=== PATIENT | male | born 1970 | race American Indian/Alaskan Native ===

== ENCOUNTER 2019-01-21 09:00 | Emergency (ER) | payer SELFPAY ==
--- NOTE | 2019-01-21 09:27 | Emergency Department Report ---
HPI - General Chief Complaint: Medical Clearance Time Seen by Provider: 01/21/19 09:17 - HPI HPI: 48-year-old -Iraqi male presents to the emergency department for a refill of his blood pressure medications which include lisinopril 40 mg and amlodipine 5 mg. Patient has been out of these medications for the past 5 days. He has no other physical complaints associated with elevated blood pressure. He does drink multiple caffeinated drinks per day and eats fast food that is high in salt. He does not have a primary care physician. Denies tobacco or illicit drug use. ED Past Medical Hx - Past Medical History Previous Medical History?: Yes Hx Hypertension: Yes - Surgical History Past Surgical History?: No - Social History Smoking Status: Never Smoker - Medications Home Medications: Home Medications Medication Instructions Recorded Confirmed Last Taken Type Lisinopril [Zestril TAB] 40 mg PO QDAY #30 tablet 01/21/19 Unknown Rx amLODIPine 5 mg PO DAILY #30 tab 01/21/19 Unknown Rx ED Review of Systems ROS: Stated complaint: HBP/MED REFILL Other details as noted in HPI Comment: All other systems reviewed and negative Constitutional: denies: fever Eyes: denies: vision change Respiratory: denies: shortness of breath Cardiovascular: denies: chest pain Gastrointestinal: denies: abdominal pain Neurological: denies: headache Physical Exam - Physical Exam Vital Signs: Vital Signs 01/21/19 09:07 Temperature 98.4 F Pulse Rate 81 Respiratory 16 Rate Blood Pressure 175/102 O2 Sat by Pulse 98 Oximetry Physical Exam: GENERAL: The patient is well-developed well-nourished. HENT: Normocephalic. Atraumatic. Patient has moist mucous membranes. EYES: Extraocular motions are intact. NECK: Supple. Trachea is midline. CHEST/LUNGS: Clear to auscultation. There is no respiratory distress noted. HEART/CARDIOVASCULAR: Regular. There is no tachycardia. There is no murmur. ABDOMEN: There is no abdominal distention. SKIN: Skin is warm and dry. NEURO: The patient is awake, alert, and oriented. The patient is cooperative. Normal speech. MUSCULOSKELETAL: There is no tenderness or deformity. There is no evidence of acute injury. ED Course Vital Signs 01/21/19 09:07 Temperature 98.4 F Pulse Rate 81 Respiratory 16 Rate Blood Pressure 175/102 O2 Sat by Pulse 98 Oximetry ED Medical Decision Making - Medical Decision Making Patient presents with some elevated blood pressure after being out of his medication for the past 5 days. He has no physical complaints including any chest pain, headache, shortness of breath. We discussed staying away from foods that are high in salt and caffeinated products and keeping a blood pressure log. He will receive a prescription refill of his blood pressure medications and has been given some referrals for local primary care physicians and clinics. Critical Care Time: No Critical care attestation.: If time is entered above; I have spent that time in minutes in the direct care of this critically ill patient, excluding procedure time. ED Disposition Clinical Impression: Medication refill Hypertension Qualifiers: Hypertension type: essential hypertension Qualified Code(s): I10 - Essential (primary) hypertension Disposition: TO HOME OR SELFCARE Is pt being admited?: No Condition: Stable Instructions: Hypertension (ED) Additional Instructions: Please try and stay away from foods that are high in salt and caffeinated products to help with your blood pressure. Keep a blood pressure log. Take your medication as prescribed. Please follow-up with a primary care physician in the next few days. Prescriptions: amLODIPine 5 mg PO DAILY #30 tab Lisinopril [Zestril TAB] 40 mg PO QDAY #30 tablet Referrals: NATHALY MALDONADO MD [Staff Physician] - 3-5 Days [facility] [Outside] - 3-5 Days MT INGRAM MD [Staff Physician] - 3-5 Days Time of Disposition: 09:27
[2019-01-21 09:45] VITALS: BP 170/100
== END 2019-01-21 09:30 | disposition home or self-care (01) ==
LOC: ED 09:00
DX: I10 Essential (primary) hypertension (principal); Z76.0 Encounter for issue of repeat prescription; Z79.899 Other long term (current) drug therapy

== ENCOUNTER 2019-03-18 09:21 | Emergency (ER) | payer SELFPAY ==
[2019-03-18 09:53] VITALS: BP 175/100
== END 2019-03-18 12:41 | disposition left against medical advice (07) ==
LOC: ED 09:21
DX: I10 Essential (primary) hypertension (principal); Z53.21 Procedure and treatment not carried out due to patient leaving prior to being seen by health care provider

== ENCOUNTER 2019-03-25 07:29 | Emergency (ER) | payer SELFPAY ==
--- NOTE | 2019-03-25 11:08 | Emergency Department Report ---
ED Medical Clearance HPI - General Chief complaint: Medical Clearance Stated complaint: MEDICATION REFILL/HBP Source: patient Mode of arrival: Ambulatory - History of Present Illness Initial comments: This is a 48-year-old -[place] male stating he was recently [facility]. Patient states that he is out of his blood pressure medication which is amlodipine 5 mg daily and lisinopril 40 mg daily. Patient currently has no medical complaints. Requesting refill of his blood pressure medicine Home medications: Previous Rx's Medication Instructions Recorded Last Taken Type amLODIPine 5 mg PO DAILY #30 tab 01/21/19 Unknown Rx lisinopriL [Zestril TAB] 40 mg PO QDAY #30 tablet 01/21/19 Unknown Rx amLODIPine 5 mg PO DAILY #30 tab 03/25/19 Unknown Rx lisinopriL [Zestril TAB] 40 mg PO DAILY #30 tablet 03/25/19 Unknown Rx Allergies/Adverse reactions: Allergies Allergy/AdvReac Type Severity Reaction Status Date / Time No Known Allergies Allergy Unverified 01/21/19 09:03 ED Review of Systems ROS: Stated complaint: MEDICATION REFILL/HBP Other details as noted in HPI ED Past Medical Hx - Past Medical History Previous Medical History?: Yes Hx Hypertension: Yes - Surgical History Past Surgical History?: No - Social History Smoking Status: Never Smoker Substance Use Type: Alcohol, Prescribed - Medications Home Medications: Home Medications Medication Instructions Recorded Confirmed Last Taken Type amLODIPine 5 mg PO DAILY #30 tab 01/21/19 Unknown Rx lisinopriL [Zestril TAB] 40 mg PO QDAY #30 tablet 01/21/19 Unknown Rx amLODIPine 5 mg PO DAILY #30 tab 03/25/19 Unknown Rx lisinopriL [Zestril TAB] 40 mg PO DAILY #30 tablet 03/25/19 Unknown Rx ED Physical Exam - General Limitations: No Limitations General appearance: alert, in no apparent distress - Eye Eye exam: Present: normal appearance - ENT ENT exam: Present: normal exam - Neck Neck exam: Present: normal inspection - Respiratory Respiratory exam: Present: normal lung sounds bilaterally. Absent: respiratory distress, wheezes - Cardiovascular Cardiovascular Exam: Present: regular rate - Extremities Exam Extremities exam: Present: normal inspection - Neurological Exam Neurological exam: Present: alert, oriented X3 - Psychiatric Psychiatric exam: Present: normal affect - Skin Skin exam: Present: warm, dry, intact ED Course Vital Signs 03/25/19 03/25/19 07:34 11:08 Temperature 97.7 F Pulse Rate 87 Respiratory 16 Rate Blood Pressure 170/100 [Left] O2 Sat by Pulse 99 Oximetry ED Medical Decision Making - Medical Decision Making 48-year-old male recently released from penitentiary out of his blood pressure medication refill for his amlodipine and lisinopril done stressed importance to the patient about follow-up with either primary care doctor [facility] or Dr. Alvarez. For treatment of his blood pressure BP 170/110 ED Disposition Clinical Impression: Medication refill Disposition: - TO HOME OR SELFCARE Is pt being admited?: No Does the pt Need Aspirin: No Condition: Stable Instructions: Hypertension (ED) Additional Instructions: Take medication as prescribed. You must follow up with Your doctor or [facility] in 1 week Prescriptions: amLODIPine 5 mg PO DAILY #30 tab lisinopriL [Zestril TAB] 40 mg PO DAILY #30 tablet Referrals: LILIAN ELIZABETH MD [Primary Care Provider] - 3-5 Days NATHALY MALDONADO MD [Staff Physician] - 3-5 Days Time of Disposition: 11:10
[2019-03-25 11:09] VITALS: BP 170/100
== END 2019-03-25 11:23 | disposition home or self-care (01) ==
LOC: ED 07:29
DX: I10 Essential (primary) hypertension (principal); Z76.0 Encounter for issue of repeat prescription; Z79.899 Other long term (current) drug therapy
CPT/HCPCS: 99282

== ENCOUNTER 2019-11-11 05:46 | Emergency (ER) | payer SELFPAY ==
[2019-11-11 06:07] VITALS: BP 170/94
--- NOTE | 2019-11-11 08:23 | Emergency Department Report ---
ED Recheck HPI - General Chief Complaint: High BP Stated Complaint: ELEVATED BLOOD PRESSURE Time Seen by Provider: 11/11/19 07:57 Source: patient Mode of arrival: Ambulatory Limitations: No Limitations - History of Present Illness Initial Comments: Patient is a 49-year-old male presents emergency room with complaints of high blood pressure. Patient states that he has not taken his medications since he had it refilled in the emergency department in March 2019. He denies any symptoms at all. He states that he has not followed up with a primary care doctor even though he was given resources during his last visit. He denies any headache, vision changes, numbness, weakness, chest pain, shortness of breath, leg swelling, dark urine, urinary retention, any symptoms. He denies any other past medical history. He states that he takes amlodipine 5 mg daily and lisinopril 40 mg daily. He denies any allergies to medications. - Related Data Previous Rx's Medication Instructions Recorded Last Taken Type amLODIPine 5 mg PO DAILY #30 tab 01/21/19 Unknown Rx lisinopriL [Zestril TAB] 40 mg PO QDAY #30 tablet 01/21/19 Unknown Rx amLODIPine 5 mg PO DAILY #30 tab 11/11/19 Unknown Rx lisinopriL [Zestril TAB] 40 mg PO DAILY #30 tablet 11/11/19 Unknown Rx Allergies Allergy/AdvReac Type Severity Reaction Status Date / Time No Known Allergies Allergy Unverified 01/21/19 09:03 ED Review of Systems ROS: Stated complaint: ELEVATED BLOOD PRESSURE Other details as noted in HPI Comment: All other systems reviewed and negative ED Past Medical Hx - Past Medical History Previous Medical History?: Yes Hx Hypertension: Yes - Surgical History Past Surgical History?: Yes - Social History Smoking Status: Never Smoker Substance Use Type: None - Medications Home Medications: Home Medications Medication Instructions Recorded Confirmed Last Taken Type amLODIPine 5 mg PO DAILY #30 tab 01/21/19 Unknown Rx lisinopriL [Zestril TAB] 40 mg PO QDAY #30 tablet 01/21/19 Unknown Rx amLODIPine 5 mg PO DAILY #30 tab 11/11/19 Unknown Rx lisinopriL [Zestril TAB] 40 mg PO DAILY #30 tablet 11/11/19 Unknown Rx ED Physical Exam - General Limitations: No Limitations General appearance: alert, in no apparent distress - Head Head exam: Present: atraumatic, normocephalic - Eye Eye exam: Present: normal appearance, PERRL, EOMI - ENT ENT exam: Present: mucous membranes moist - Respiratory Respiratory exam: Present: normal lung sounds bilaterally. Absent: respiratory distress, wheezes, rales, rhonchi, stridor, chest wall tenderness, accessory muscle use, decreased breath sounds, prolonged expiratory - Cardiovascular Cardiovascular Exam: Present: regular rate, normal rhythm, normal heart sounds. Absent: systolic murmur, diastolic murmur, rubs, gallop - Neurological Exam Neurological exam: Present: alert, oriented X3, CN II-XII intact, normal gait. Absent: motor sensory deficit - Psychiatric Psychiatric exam: Present: normal affect, normal mood - Skin Skin exam: Present: warm, dry, intact ED Course Vital Signs 11/11/19 06:02 Temperature 98.3 F Pulse Rate 65 Respiratory 18 Rate Blood Pressure 170/94 O2 Sat by Pulse 96 Oximetry ED Recheck MDM - Medical Decision Making Patient is a 49-year-old male presents emergency room with complaints of high blood pressure. Patient states that he has not taken his medications since he had it refilled in the emergency department in March 2019. He denies any symptoms at all. He states that he has not followed up with a primary care doctor even though he was given resources during his last visit. He denies any headache, vision changes, numbness, weakness, chest pain, shortness of breath, leg swelling, dark urine, urinary retention, any symptoms. He denies any other past medical history. He states that he takes amlodipine 5 mg daily and lisinopril 40 mg daily. He denies any allergies to medications. vitals with elevated blood pressure of 170/94, otherwise vitals are normal. Patient will be given a one-month refill of his medications. Patient will again be referred to multiple community resources in order to receive chronic management of his condition and routine blood work. he does not have any clinical signs of HTN urgency/emergency, he has no CVA symptoms. the up to date medical literature does not recommend emergency lowering asymptomatic elevation in blood pressure. Advised patient to please take medication as prescribed. Increase your water i ntake. Please eat a low-sodium (low salt) diet. Incorporate 30 to 60 minutes of aerobic exercise a day. Please keep a blood pressure log and take this to the primary care physician. It is very important that you follow-up with a primary care physician for chronic management of this condition. Long-term effects of uncontrolled blood pressure include increased risk for heart attack, stroke, blindness, kidney disease, etc. Return to emergency room for any new or worsening symptoms. Critical care attestation.: If time is entered above; I have spent that time in minutes in the direct care of this critically ill patient, excluding procedure time. ED Disposition Clinical Impression: Elevated blood pressure reading, Medication refill, Non compliance w medication regimen HTN (hypertension) Qualifiers: Hypertension type: unspecified Qualified Code(s): I10 - Essential (primary) hypertension Disposition: TO HOME OR SELFCARE Is pt being admited?: No Does the pt Need Aspirin: No Condition: Stable Instructions: Hypertension (ED) Additional Instructions: please take medication as prescribed. Increase your water intake. Please eat a low-sodium (low salt) diet. Incorporate 30 to 60 minutes of aerobic exercise a day. Please keep a blood pressure log and take this to the primary care physician. It is very important that you follow-up with a primary care physician for chronic management of this condition and routine blood work. Long-term effects of uncontrolled blood pressure include increased risk for heart attack, stroke, blindness, kidney disease, etc. Return to emergency room for any new or worsening symptoms. Prescriptions: amLODIPine 5 mg PO DAILY #30 tab lisinopriL [Zestril TAB] 40 mg PO DAILY #30 tablet Referrals: NATHALY MALDONADO MD [Staff Physician] - 2-3 Days [facility] [Provider Group] - 2-3 Days [facility] [Outside] - 2-3 Days Time of Disposition: 08:23 Print Language: MACANESE
== END 2019-11-11 08:30 | disposition home or self-care (01) ==
LOC: ED 05:46
DX: I10 Essential (primary) hypertension (principal)
CPT/HCPCS: 99282

== ENCOUNTER 2020-01-27 07:56 | Emergency (ER) | payer SELFPAY ==
[2020-01-27 08:35] VITALS: BP 168/103
--- NOTE | 2020-01-27 09:23 | Emergency Department Report ---
ED General Adult HPI - General Chief complaint: High BP Stated complaint: BP CHECK/NEED MEDS Time Seen by Provider: 01/27/20 08:45 Source: patient Mode of arrival: Ambulatory Limitations: No Limitations - History of Present Illness Initial comments: 49-year-old -Portuguese male patient with history of hypertension presents with complaints of elevated blood pressure due to being out of his blood pressure medications x2 weeks. Patient last seen here in the ED 11/2019 for medication refills. Patient states he did follow-up with Dr. Morrell, however he was not able to afford the office visit. He denies any chest pain, shortness of breath, dizziness, headaches, numbness/tingling/weakness in the limbs, confusion, or vision changes. - Related Data Previous Rx's Medication Instructions Recorded Last Taken Type amLODIPine 5 mg PO DAILY #30 tab 01/21/19 Unknown Rx lisinopriL [Zestril TAB] 40 mg PO QDAY #30 tablet 01/21/19 Unknown Rx amLODIPine 5 mg PO DAILY #30 tab 11/11/19 Unknown Rx amLODIPine 10 mg PO DAILY 30 Days #30 tab 01/27/20 Unknown Rx lisinopriL [Zestril TAB] 40 mg PO DAILY 30 Days #30 tablet 01/27/20 Unknown Rx Allergies Allergy/AdvReac Type Severity Reaction Status Date / Time No Known Allergies Allergy Unverified 01/21/19 09:03 ED Review of Systems ROS: Stated complaint: BP CHECK/NEED MEDS Other details as noted in HPI Constitutional: denies: chills, fever Respiratory: denies: cough, shortness of breath Cardiovascular: denies: chest pain Genitourinary: denies: hematuria Musculoskeletal: denies: joint swelling Neurological: denies: headache, weakness, numbness, paresthesias, confusion, abnormal gait ED Past Medical Hx - Past Medical History Previous Medical History?: Yes Hx Hypertension: Yes - Surgical History Past Surgical History?: No - Social History Smoking Status: Never Smoker Substance Use Type: Alcohol - Medications Home Medications: Home Medications Medication Instructions Recorded Confirmed Last Taken Type amLODIPine 5 mg PO DAILY #30 tab 01/21/19 Unknown Rx lisinopriL [Zestril TAB] 40 mg PO QDAY #30 tablet 01/21/19 Unknown Rx amLODIPine 5 mg PO DAILY #30 tab 09/06/20 Unknown Rx amLODIPine 10 mg PO DAILY 30 Days #30 tab 01/27/20 Unknown Rx lisinopriL [Zestril TAB] 40 mg PO DAILY 30 Days #30 tablet 01/27/20 Unknown Rx ED Physical Exam - General Limitations: No Limitations General appearance: alert, in no apparent distress - Head Head exam: Present: atraumatic, normocephalic - Eye Eye exam: Present: normal appearance. Absent: scleral icterus - ENT ENT exam: Present: mucous membranes moist - Respiratory Respiratory exam: Present: normal lung sounds bilaterally. Absent: respiratory distress - Cardiovascular Cardiovascular Exam: Present: regular rate - Neurological Exam Neurological exam: Present: alert, oriented X3, normal gait - Psychiatric Psychiatric exam: Present: normal affect, normal mood - Skin Skin exam: Present: warm, dry, intact, normal color. Absent: rash ED Course Vital Signs 01/27/20 08:26 Temperature 98.4 F Pulse Rate 66 Respiratory 18 Rate Blood Pressure 168/103 O2 Sat by Pulse 98 Oximetry ED Medical Decision Making - Medical Decision Making 49-year-old -Portuguese male patient with history of hypertension presents with complaints of elevated blood pressure due to being out of his blood pressure medications x2 weeks. Patient last seen here in the ED 11/2019 for medication refills. Patient states he did follow-up with Dr. Morrell, however he was not able to afford the office visit. He denies any chest pain, shortness of breath, dizziness, headaches, numbness/tingling/weakness in the limbs, confusion, or vision changes. Med refills given. Patient given community resources and good [facility] clinic information. Patient to follow-up within 3 days. Discussed strict return precautions in detail with patient who verbalized understanding. Critical care attestation.: If time is entered above; I have spent that time in minutes in the direct care of this critically ill patient, excluding procedure time. ED Disposition Clinical Impression: Uncontrolled hypertension, Medication refill Disposition: PAT REG,TRIAGED-NO MSE Is pt being admited?: No Condition: Stable Instructions: Hypertension (ED), Managing Your Hypertension, Lisinopril tablets, Amlodipine tablets Prescriptions: amLODIPine 10 mg PO DAILY 30 Days #30 tab lisinopriL [Zestril TAB] 40 mg PO DAILY 30 Days #30 tablet Referrals: PRIMARY CARE, [Primary Care Provider] - 2-3 Days
== END 2020-01-27 09:29 | disposition left against medical advice (07) ==
LOC: ED 07:56
DX: I10 Essential (primary) hypertension (principal); Z53.21 Procedure and treatment not carried out due to patient leaving prior to being seen by health care provider
CPT/HCPCS: 99281

== ENCOUNTER 2020-06-28 13:54 | Emergency (ER) | payer SELFPAY ==
[2020-06-28 16:43] VITALS: BP 146/94
--- NOTE | 2020-06-28 17:03 | Emergency Department Report ---
ED General Adult HPI - General Chief complaint: High BP Stated complaint: BLOOD PRESSURE CHECK, MED REFILL Time Seen by Provider: 06/28/20 16:43 Source: patient Mode of arrival: Ambulatory Limitations: No Limitations - History of Present Illness Initial comments: 49-year-old -Pakistani male patient presents with complaints of intermittent headaches x1 week since running out of his blood pressure medication. He states he takes amlodipine and lisinopril and has been on these medications for many years. He denies any cough, swelling, shortness of breath, dizziness, vision changes, numbness/tingling/weakness in his limbs, chest pain, shortness of breath, confusion, memory loss, or difficulty with speech/ambulation. No current headache per patient. Patient states he does not have insurance and is not currently following with a primary care provider. No other past medical history per patient. - Related Data Previous Rx's Medication Instructions Recorded Last Taken Type amLODIPine 5 mg PO DAILY #30 tab 01/21/19 Unknown Rx amLODIPine 5 mg PO DAILY #30 tab 11/11/19 Unknown Rx lisinopriL [Zestril TAB] 40 mg PO DAILY 30 Days #30 tablet 01/27/20 Unknown Rx amLODIPine 10 mg PO DAILY 30 Days #30 tab 06/28/20 Unknown Rx lisinopriL [Zestril TAB] 40 mg PO QDAY #30 tablet 06/28/20 Unknown Rx Allergies Allergy/AdvReac Type Severity Reaction Status Date / Time No Known Allergies Allergy Unverified 01/21/19 09:03 ED Review of Systems ROS: Stated complaint: BLOOD PRESSURE CHECK, MED REFILL Other details as noted in HPI Constitutional: denies: chills, fever, malaise Eyes: denies: vision change Respiratory: denies: cough, shortness of breath Cardiovascular: denies: chest pain Gastrointestinal: denies: nausea, vomiting Neurological: as per HPI ED Past Medical Hx - Past Medical History Previous Medical History?: Yes Hx Hypertension: Yes - Surgical History Past Surgical History?: No - Social History Smoking Status: Never Smoker Substance Use Type: None - Medications Home Medications: Home Medications Medication Instructions Recorded Confirmed Last Taken Type amLODIPine 5 mg PO DAILY #30 tab 01/21/19 Unknown Rx amLODIPine 5 mg PO DAILY #30 tab 11/11/19 Unknown Rx lisinopriL [Zestril TAB] 40 mg PO DAILY 30 Days #30 tablet 01/27/20 Unknown Rx amLODIPine 10 mg PO DAILY 30 Days #30 tab 06/28/20 Unknown Rx lisinopriL [Zestril TAB] 40 mg PO QDAY #30 tablet 06/28/20 Unknown Rx ED Physical Exam - General Limitations: No Limitations General appearance: alert, in no apparent distress - Head Head exam: Present: atraumatic, normocephalic - Eye Eye exam: Present: normal appearance, PERRL, EOMI. Absent: scleral icterus - Neck Neck exam: Present: normal inspection - Respiratory Respiratory exam: Absent: respiratory distress - Cardiovascular Cardiovascular Exam: Present: regular rate - Neurological Exam Neurological exam: Present: alert, oriented X3, CN II-XII intact, normal gait. Absent: motor sensory deficit - Psychiatric Psychiatric exam: Present: normal affect, normal mood - Skin Skin exam: Present: warm, dry, intact, normal color. Absent: rash, cyanosis, diaphoretic ED Course Vital Signs 06/28/20 15:58 Temperature 98.6 F Pulse Rate 73 Respiratory 18 Rate Blood Pressure 146/94 O2 Sat by Pulse 100 Oximetry ED Medical Decision Making - Medical Decision Making 49-year-old -Pakistani male patient presents with complaints of intermittent headaches x1 week since running out of his blood pressure medication. He states he takes amlodipine and lisinopril and has been on these medications for many years. He denies any cough, swelling, shortness of breath, dizziness, vision changes, numbness/tingling/weakness in his limbs, chest pain, shortness of breath, confusion, memory loss, or difficulty with speech/ambulation. No current headache per patient. Patient states he does not have insurance and is not currently following with a primary care provider. No other past medical history per patient. Blood pressure 146/94. Given headaches due to uncontrolled blood pressure and lack of current follow-up, refills given. Patient provided with health clinic list and informed to follow-up within 5 days. He is neurologically intact, his vitals are stable, he is stable for discharge home. Strict return precautions were discussed in detail with patient who verbalizes understanding. Critical care attestation.: If time is entered above; I have spent that time in minutes in the direct care of this critically ill patient, excluding procedure time. ED Disposition Clinical Impression: Elevated blood pressure reading Disposition: DC-01 TO HOME OR SELFCARE Is pt being admited?: No Condition: Stable Instructions: Hypertension, Adult Prescriptions: amLODIPine 10 mg PO DAILY 30 Days #30 tab lisinopriL [Zestril TAB] 40 mg PO QDAY #30 tablet Referrals: [facility] [Provider Group] - 3-5 Days
== END 2020-06-28 17:34 | disposition home or self-care (01) ==
LOC: ED 13:54
DX: R03.0 Elevated blood-pressure reading, without diagnosis of hypertension (principal); I10 Essential (primary) hypertension; Z76.0 Encounter for issue of repeat prescription; Z79.899 Other long term (current) drug therapy
CPT/HCPCS: 99282